=== PATIENT | male | born 1980 | race American Indian/Alaskan Native ===

== ENCOUNTER 2018-05-12 16:50 | Emergency (ER) | payer OTHER ==
[2018-05-12] MEDS ORDERED: KEPPRA 1,000 MG/NS 0.75% 100ML 1,000 MG/100 ML BAG IV ONE (17:19)
[2018-05-12] MEDS ORDERED: NACL 0.9% 1000 ML 1,000 ML IV ONE (17:19)
--- NOTE | 2018-05-12 17:33 | Emergency Department Report ---
HPI - General Chief Complaint: Seizure Time Seen by Provider: 05/12/18 17:08 - HPI HPI: 37-year-old -[place] male presents to the emergency department via EMS from home with complaint of having 2-3 seizures prior to arrival. The patient does have a seizure history that is been going on for the past 1.5 years. He takes 750 mg of Keppra twice daily and says that he has been compliant. He complains currently of a headache. He denies any vision change, slurred speech, fever or any neurological deficits. He denies any illicit drug use or alcohol abuse. He has not taken anything for her symptoms prior to arrival. ED Past Medical Hx - Past Medical History Hx Seizures: Yes (recently diagnoised) - Social History Smoking Status: Unknown if ever smoked ED Review of Systems ROS: Stated complaint: SEIZURE 3X Other details as noted in HPI Comment: All other systems reviewed and negative Constitutional: denies: chills, fever Eyes: denies: eye pain, vision change ENT: denies: ear pain, throat pain Respiratory: denies: cough, shortness of breath Cardiovascular: denies: chest pain, palpitations Gastrointestinal: denies: abdominal pain, vomiting Genitourinary: denies: dysuria, discharge Musculoskeletal: denies: back pain, arthralgia Skin: denies: rash, lesions Neurological: headache, other (seizures) Physical Exam - Physical Exam Vital Signs: Vital Signs 05/12/18 16:59 Temperature 97.6 F Pulse Rate 62 Blood Pressure 108/62 Physical Exam: GENERAL: The patient is well-developed well-nourished. HEENT: Normocephalic. Atraumatic. Patient has moist mucous membranes. EYES: Extraocular motions are intact. Pupils are equal and reactive to light bilaterally. No nystagmus. NECK: Supple. Trachea is midline. CHEST/LUNGS: Clear to auscultation. There is no respiratory distress noted. HEART/CARDIOVASCULAR: Regular. There is no tachycardia. There is no obvious murmur. ABDOMEN: Abdomen is soft, nontender. Patient has normal bowel sounds. There is no abdominal distention. SKIN: Skin is warm and dry. NEURO: The patient is awake, alert, and oriented. The patient is cooperative. The patient has no focal neurologic deficits. The patient has normal speech. Cranial nerves II through XII grossly intact. MUSCULOSKELETAL: There is no tenderness or deformity. There is no limitation range of motion. There is no evidence of acute injury. ED Course Vital Signs 05/12/18 16:59 Temperature 97.6 F Pulse Rate 62 Blood Pressure 108/62 ED Medical Decision Making - Lab Data Result diagrams: 05/12/18 19:20 05/12/18 Unknown - EKG Data -: EKG Interpreted by Me EKG shows normal: sinus rhythm, axis, intervals, QRS complexes (LVH), ST-T waves (early repolarization) Rate: bradycardia (53 bpm) - EKG Data When compared to previous EKG there are: previous EKG unavailable Interpretation: other (sinus bradycardia at 53 beats minute, LVH) - Medical Decision Making This patient presents to the emergency department after having 3 seizures prior to arrival. He has a history of a seizure disorder that has been going on for the past 1.5 years and he is on Keppra which he says he has been taking compliantly. He also says he has an appointment coming up this coming Monday with a neurologist to have a 24-hour EEG placed and further evaluation of his seizure disorder. Since being in the emergency department, the patient has been awake and alert. There has been no further seizure-like activity or altered mental status. There has been no focal, motor or sensory deficits and his cranial nerves have been intact. Patient's labs have been unremarkable. EKG did not show any signs of ST elevation [place] or dysrhythmia. Patient was loaded with a gram of Keppra and received some IV fluid resuscitation. He did have a mild headache that improved prior to discharge. Since the patient does not have any deficits and does have a known seizure disorder, I did not feel that any CT imaging of the head was necessary at this time. He will follow-up with the neurologist as previously scheduled and will return to the ER with any further seizure-like activity, worsening of his symptoms, or if any acute distress. - Differential Diagnosis epilepsy, dysrhythmia, electrolyte abnormalities, hypoglycemia Critical Care Time: No Critical care attestation.: If time is entered above; I have spent that time in minutes in the direct care of this critically ill patient, excluding procedure time. ED Disposition Clinical Impression: Seizure disorder Disposition: - TO HOME OR SELFCARE Is pt being admited?: No Condition: Stable Instructions: Recurrent Seizures Adult (ED) Additional Instructions: Please follow up with the neurologist as previously scheduled. Return to the emergency department with any further episodes of seizures, change in mental status, severe intractable headache, or if any acute distress. Try to avoid any alcohol, caffeinated products, until cleared by the neurologist. Take your Keppra as previously prescribed. Referrals: Neurologist, Your [Other] - [facility] Forms: Accompanied Note Time of Disposition: 20:59
[2018-05-12] MEDS ORDERED: TYLENOL PO ONE (17:35)
[2018-05-12] MEDS ORDERED: MORPHINE IV ONE (17:35)
[2018-05-12] MEDS ORDERED: ZOFRAN ONE (17:46)
[2018-05-12] MEDS ORDERED: ZOFRAN IV ONE (17:47)
[2018-05-12 19:19] LABS: BUN/Creatinine Ratio 10; Blood Urea Nitrogen 11 mg/dL (9-20); Calcium 8.7 mg/dL (8.4-10.2); Hemolysis Index 138
[2018-05-12 19:34] LABS: Basophils % (Auto) 0.2 % (0.0-1.8); Eosinophils # (Auto) 0.1 K/mm3 (0.0-0.4); Eosinophils % (Auto) 0.8 % (0.0-4.3); Hematocrit 41.9 % (35.5-45.6); Hemoglobin 14.1 gm/dl (11.8-15.2); Lymphocytes # (Auto) 1.4 K/mm3 (1.2-5.4); Lymphocytes % (Auto) 13.6 % (13.4-35.0); Mean Corpuscular HGB Conc 34 % (32-34); Mean Corpuscular Volume 88 fl (84-94); Monocytes # (Auto) 0.5 K/mm3 (0.0-0.8); Monocytes % (Auto) 4.8 % (0.0-7.3); Platelet Count 110 K/mm3 (140-440); Red Blood Count 4.78 M/mm3 (3.65-5.03); Red Cell Distribution Width 14.1 % (13.2-15.2)
[2018-05-12 20:11] LABS: Alanine Aminotransferase 21 units/L (7-56)
[2018-05-12] MEDS ORDERED: NORCO 5/325 PO ONE (21:06)
[2018-05-12 21:28] VITALS: BP 110/67
== END 2018-05-12 21:36 | disposition home or self-care (01) ==
LOC: ED 16:50
DX: G40.909 Epilepsy, unspecified, not intractable, without status epilepticus (principal)
CPT/HCPCS: 36415; 80053; 82550; 85025; 93005; 93010; 96365; 96366; 96375; 99284; G0480; J1953; J2270; J2405; J7030; 80320